=== PATIENT | male | born 1985 | race Caucasian/White ===

== ENCOUNTER 2022-01-25 23:30 | Emergency (ER) | payer BC ==
[~2022-01-25] VITALS: Ht 170.2 cm; Wt 105.2 kg
[2022-01-25 23:54] VITALS: BP 156/96
--- NOTE | 2022-01-26 00:01 | NUR ---
Patient ambulated to bed 9 with strong gait.
--- NOTE | 2022-01-26 00:15 | NUR ---
PT C/O RLQ ABD PAIN RADIATES TO GROIN, PT FELL A FEW DAYS AGO AND SEEN AT [facility] AND WITH ABD STRAIN, PT WAS LIFTING ALOT OF HEAVY WEIGHT TODAY, PT UNABLE TO SLEEP DUE TO PAIN. DENIES ANY MEDICAL HISTORY.
--- NOTE | 2022-01-26 01:30 | NUR ---
PT SITING IN A CHAIR, PT STATES PAIN HAS REDUCED TO 2/10
[2022-01-26] MEDS ORDERED: IBUP-1842 PO (01:53)
[2022-01-26] MEDS ORDERED: DICL100G5 TP (01:53)
[2022-01-26] MEDS ORDERED: CYCL-711 PO (01:53)
[2022-01-26 02:00] VITALS: BP 130/61
--- NOTE | 2022-01-26 02:00 | NUR ---
Patient discharged with v/s stable. Written and verbal after care instructions given and explained. Patient verbalized understanding. Ambulatory with steady gait. All questions addressed prior to discharge. Advised to follow up with PMD.
== END 2022-01-26 02:00 | disposition home or self-care (01) ==
LOC: MED 23:30
DX: S76.011A Strain of muscle, fascia and tendon of right hip, initial encounter (principal); W18.30XA Fall on same level, unspecified, initial encounter; Y93.89 Activity, other specified; Y92.89 Other specified places as the place of occurrence of the external cause; Y99.8 Other external cause status
CPT/HCPCS: 99281